=== PATIENT | female | born 1975 | race Caucasian/White ===

== ENCOUNTER 2025-02-19 09:00 | Outpatient (RCR) | payer BC | END 2025-02-24 | LOC: OT 09:00 | PROVIDERS: ATTEND Orthopaedic Surgery | DX: M25.532 Pain in left wrist (principal) ==

== ENCOUNTER → 2025-03-26 | Outpatient (RCR) | payer BC | LOC: OT 02-26 12:57 | PROVIDERS: ATTEND Orthopaedic Surgery | DX: M25.532 Pain in left wrist (principal) ==

== ENCOUNTER 2025-05-14 15:00 | Outpatient (RCR) | payer BC | END 2025-05-26 | LOC: OT 15:00 | PROVIDERS: ATTEND Orthopaedic Surgery | DX: M25.532 Pain in left wrist (principal) ==